=== PATIENT | female | born 2000 | race Caucasian/White ===

== ENCOUNTER → 2024-10-27 14:14 | Outpatient (REF) | payer OTHER, SELFPAY | LOC: RCS 14:14 | PROVIDERS: ATTENDING PHYSICIAN Internal Medicine Cardiovascular Disease; FAMILY PHYSICIAN Nurse Practitioner | DX: R07.89 Other chest pain (principal); R00.0 Tachycardia, unspecified | CPT/HCPCS: 93017 ==